=== PATIENT | female | born 1970 ===

== ENCOUNTER 2018-08-24 06:55 | Day surgery (SDC) | payer OTHER ==
[~2018-08-24 06:55] MED LIST: ADVAIR HFA 230/12 GM IH; ATORVASTATIN CA10 MG PO; BUDEO.25 IH; CYCLOBENZAPRINE10 MG PO; DIMISTA PO; DOXYCYCLINE IR-40 MG PO; DYMISTA NASAL S23 GM; FLOVENT DISKU100 MCG IH; Intestinex CAP PO; LEVALBUTER1.25 MG/0. IH; LOSARTAN POTASS25 MG; OXYC1TAB9 PO; PEPCID40 MG PO; PROGESTERONE200 MG PO; PROTONIX40 MG PO; SINGULAIR10 MG PO; VIT C-ROSE HIP500 MG PO; VITAMIN C500 MG PO; VITAMIN D400 UNI2 PO
[2018-08-24] MEDS ORDERED: PERCOCET 5-3251 EACH PO (10:08)
[2018-08-24] MEDS ORDERED: PEPCID AC20 MG PO (10:08)
[2018-08-24] MEDS ORDERED: ZOFRAN ODT4 MG PO (10:11)
[2018-08-24] MEDS ORDERED: KETO10TA2 PO (10:12)
== END 2018-08-24 12:40 | disposition home or self-care (01) ==
LOC: CIR.AMB 06:55
DX: K80.10 Calculus of gallbladder with chronic cholecystitis without obstruction (principal)

== ENCOUNTER 2018-09-01 19:12 | Inpatient (IN) | payer OTHER ==
[~2018-09-01] VITALS: Ht 167.6 cm; Wt 84.8 kg
[~2018-09-01 19:12] MED LIST changes: +KETO10TA2 PO; +PEPCID AC20 MG PO; +PERCOCET 5-3251 EACH PO; +ZOFRAN ODT4 MG PO
[2018-09-12] MEDS ORDERED: PROTONIX40 MG PO (17:27)
[2018-09-12] MEDS ORDERED: RESTORA RX CAP1 EACH PO (17:28)
[2018-09-12] MEDS ORDERED: DYMISTA NASAL S23 GM NASAL (17:29)
== END 2018-09-12 17:55 | disposition home or self-care (01) | DRG 438 ==
LOC: ER 19:12 → SURG 09-02 09:44 → SEC-K 09-02 09:44 → SURG 09-02 10:52
PROC: BF37ZZZ Magnetic Resonance Imaging (MRI) of Pancreas (ICD-10-PCS; principal; 2018-09-04)
PROC: 02HV33Z Insertion of Infusion Device into Superior Vena Cava, Percutaneous Approach (ICD-10-PCS; 2018-09-04)
PROC: 0FC98ZZ Extirpation of Matter from Common Bile Duct, Via Natural or Artificial Opening Endoscopic (ICD-10-PCS; 2018-09-05)
PROC: 0F798ZZ Dilation of Common Bile Duct, Via Natural or Artificial Opening Endoscopic (ICD-10-PCS; 2018-09-05)
PROC: B246ZZZ Ultrasonography of Right and Left Heart (ICD-10-PCS; 2018-09-06)
PROC: 3E0F7GC Introduction of Other Therapeutic Substance into Respiratory Tract, Via Natural or Artificial Opening (ICD-10-PCS; 2018-09-07)
PROC: BW21ZZZ Computerized Tomography (CT Scan) of Abdomen and Pelvis (ICD-10-PCS; 2018-09-12)
DX: K85.80 Other acute pancreatitis without necrosis or infection (principal); A41.9 Sepsis, unspecified organism; E11.65 Type 2 diabetes mellitus with hyperglycemia; D64.89 Other specified anemias; I11.9 Hypertensive heart disease without heart failure; J45.20 Mild intermittent asthma, uncomplicated; G47.33 Obstructive sleep apnea (adult) (pediatric); K57.30 Diverticulosis of large intestine without perforation or abscess without bleeding; R50.9 Fever, unspecified; E66.8 Other obesity; Z90.49 Acquired absence of other specified parts of digestive tract; Z98.84 Bariatric surgery status